=== PATIENT | male | born 1965 | race Two or more races ===

== ENCOUNTER 2020-08-20 22:39 | Emergency (ER) | payer MEDICAID ==
[~2020-08-20] VITALS: Ht 185.4 cm; Wt 77.1 kg
[2020-08-20 22:51] VITALS: BP 162/81
== END 2020-08-21 00:30 | disposition home or self-care (01) ==
LOC: ER 22:39
DX: L25.8 Unspecified contact dermatitis due to other agents (principal); T36.4X5A Adverse effect of tetracyclines, initial encounter; Y92.89 Other specified places as the place of occurrence of the external cause